=== PATIENT | male | born 1980 | race Caucasian/White ===

== ENCOUNTER 2017-08-16 13:06 | Emergency (ER) | payer SELFPAY ==
--- NOTE | 2017-08-16 14:04 | PDOC ---
History of Present Illness - General Chief Complaint: Chest Pain Stated Complaint: CHEST PAIN Time Seen by Provider: 08/16/17 13:42 History Source: Patient Exam Limitations: No Limitations - History of Present Illness Initial Comments: This is a 37 YOM with unremarkable PMH who presents with SOB, left-sided chest pain, tremors, nausea, dry heaves, chills, and mild lightheadedness which all awoke him this morning at about 8 am. He expresses concern that he smoked cocaine yesterday morning. The chest pain was left-sided pressure radiating to his left upper back which lasted about an hour and improved subsequently. He now notes right arm pain instead. He additionally feels like he cannot catch his breath. He denies any recent illness (no cough, sore throat, or runny nose) and also denies any falls or injuries lately. Past History - Past Medical History Allergies/Adverse Reactions: Allergies Allergy/AdvReac Type Severity Reaction Status Date / Time No Known Allergies Allergy Verified 08/16/17 18:13 Home Medications: Ambulatory Orders NK [No Known Home Medication] 08/16/17 Review of Systems - Review of Systems Able to Perform ROS?: Yes Constitutional: Yes: Chills. No: Fever, Unexplained wgt Loss HEENTM: No: Nose Congestion, Throat Pain Respiratory: Yes: Shortness of Breath. No: Cough Cardiac (ROS): Yes: Chest Pain, Lightheadedness. No: Edema, Syncope ABD/GI: Yes: Nausea, Other (dry heaves). No: Constipated, Diarrhea : No: Burning, Dysuria Musculoskeletal: No: Back Pain, Neck Pain Integumentary: No: Bruising, Rash Neurological: Yes: Tremors, Dizziness. No: Headache, Numbness, Tingling, Weakness Psychiatric: Yes: Other (substance use) Endocrine: No: Unexplained Weight Gain, Unexplained Weight Loss *Physical Exam - Vital Signs Last Vital Signs Temp Pulse Resp BP Pulse Ox 98.1 F 80 14 108/68 97 08/16/17 13:10 08/17/17 05:13 08/17/17 05:13 08/17/17 05:13 08/17/17 05:13 - Physical Exam General Appearance: Yes: Nourished, Appropriately Dressed, Mild Distress, Other (anxious-appearing and tremulous at rest, Upper Sorbian-speaking gentleman who answers questions appropriately, on face mask O2, appears as if he may be in withdrawal or intoxicated) HEENT: positive: EOMI, [place], Normal Voice, Hearing Grossly Normal. negative: Scleral Icterus (R), Scleral Icterus (L), Nasal Congestion Neck: positive: Trachea midline, Supple. negative: Tender, Rigid Respiratory/Chest: positive: Lungs Clear, Normal Breath Sounds. negative: Chest Tender, Respiratory Distress, Crackles, Rhonchi, Stridor, Wheezing Cardiovascular: positive: Regular Rhythm, Regular Rate. negative: Edema, Murmur , Tachycardia Gastrointestinal/Abdominal: positive: Normal Bowel Sounds, Soft, Protuberent. negative: Tender, Organomegaly, Pulsatile Mass, Guarding Musculoskeletal: positive: Normal Inspection. negative: Decreased Range of Motion, Vertebral Tenderness Extremity: positive: Normal Capillary Refill, Normal Inspection, Normal Range of Motion. negative: Tender, Cyanosis, Swelling, Erythema, Inflammation Integumentary: positive: Normal Color, Dry, Warm. 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 negative: EOM Palsy, Facial Droop, Numbness, Sensory Deficit, Confused, Disoriented Heart Score/ECG Review - History History: Moderately suspicious - Electrocardiogram EKG: Non specific repolarization disturbance - Age Age: </= 45 - Risk Factors Based on the list above the patient has:: No risk factors known - Troponin Troponin: </= normal limit - Score Heart Score - Total: 2 #1 Incomplete RBBB ED Treatment Course - LABORATORY CBC & Chemistry Diagram: 08/16/17 15:25 08/16/17 15:25 - ADDITIONAL ORDERS Additional order review: 08/16/17 15:25 RBC 4.65 MCV 96.1 H MCHC 34.2 RDW 13.0 MPV 8.3 Neutrophils % 75.5 Lymphocytes % 14.4 Monocytes % 9.2 Eosinophils % 0.0 Basophils % 0.9 - RADIOLOGY Radiology Studies Ordered: Category Date Time Status ABDOMEN CTA W/WO CONTRAST [CT] Stat CT Scan 08/16/17 20:15 Completed CHEST CTA [CT] Stat CT Scan 08/16/17 16:14 Completed - Medications Given in the ED: ED Medications Discontinued Medications Generic Name Dose Route Start Last Admin Trade Name Patricia PRN Reason Stop Dose Admin Diphenhydramine HCl 25 mg 08/16/17 18:39 08/16/17 19:02 Benadryl Injection - IVPUSH 08/16/17 18:40 25 mg ONCE ONE Administration Diphenhydramine HCl 25 mg 08/16/17 20:04 08/16/17 20:09 Benadryl Injection - IVPB 08/16/17 20:05 25 mg ONCE ONE Administration Lorazepam 2 mg 08/16/17 15:11 08/16/17 15:29 Ativan Injection - IVPUSH 08/16/17 15:12 2 mg ONCE ONE Administration Methylprednisolone Sodium Succinate 125 mg 08/16/17 18:39 08/16/17 19:02 Solu-Medrol - IVPB 08/16/17 18:40 125 mg ONCE ONE Administration Sodium Chloride 1,000 ml 08/16/17 15:37 08/16/17 16:51 Normal Saline - IV 08/16/17 15:38 1,000 ml ONCE ONE Administration Medical Decision Making - Medical Decision Making 37 YOM presents one day after smoking cocaine with left CP, SOB, tremors, dry heaves, tremors, chills. Notes no medical allergies to medications or other substances. On exam he is tremulous, anxious, currently denying chest pain DDX IBNLT ACS, AD, pneumothorax, [place], Rosa-Dawson, pneumomediastinum, PNA, pancreatitis, gastritis, etc. Also possible withdrawal component although the patient denies any chronic drug or alcohol use. Ordered is CBCD, CMP, Cardiac panel, Lipase, CXR, EKG. 08/16/17 15:16 Patient appearing very anxious and tremulous; 2 mg Ativan ordered after BP observed to be >130 systolic. 08/16/17 18:[address] about to get CTA chest abd pelv, patient now noting contrast allergy. Patient brought back to ED and ordered is 125 Solu-Medrol and 25 mg Benadryl IV for pre-treatment. Patient to get CTA studies 1 hour after pre-medication administration. Patient's care is signed out to scene shifter resident at end of my shift. *DC/Admit/Observation/Transfer Diagnosis at time of Disposition: Tremors of nervous system, Shortness of breath Chest pain Qualifiers: Chest pain type: unspecified Qualified Code(s): R07.9 - Chest pain, unspecified - Referrals Referrals: Kendell Alvarenga MD [Staff Physician] - Renetta Mai MD [Staff Physician] - - Patient Instructions Additional Instructions: avoid drug use as much as possible. Please follow up with doctor referred to you here in the ER. Print Language: WOLOF - Post Discharge Activity
[2017-08-16] MEDS ORDERED: LORazepam 2 MG/ML SDV VIAL ONE (15:12)
[2017-08-16 15:37] LABS: BASOPHIL 0.9 % (0-2.0); MCH 32.8 pg (25.7-33.7); MCHC 34.2 g/dl (32.0-35.9); MEAN CELL VOLUME 96.1 fl (80-96); MEAN PLT VOLUME 8.3 fl (7.5-11.1); NEUTROPHILS 75.5 % (42.8-82.8); PLATELET COUNT 223 K/MM3 (134-434); WHITE BLOOD COUNT 5.2 K/mm3 (4.0-10.0)
[2017-08-16] MEDS ORDERED: SODIUM CHLORIDE 0.9% 1000 ML INFUS.BAG IV ONE (15:37)
[2017-08-16 15:57] LABS: ALBUMIN 4.2 g/dl (3.4-5.0); ANION GAP 14 (8-16); BILIRUBIN,TOTAL 0.6 mg/dL (0.2-1.0); CALCIUM 9.4 mg/dL (8.5-10.1); CO2 24 mmol/L (21-32); CREATININE 0.8 mg/dL (0.7-1.3); GLUCOSE,RANDOM 109 mg/dL (74-106); SGOT/AST 65 U/L (15-37); SGPT/ALT 77 U/L (12-78); TOT PROT 8.3 g/dl (6.4-8.2)
[2017-08-16 16:00] LABS: ALK PHOS 120 U/L (45-117); CPK 156 IU/L (39-308); TROPONIN I < 0.02 ng/ml (0.00-0.05)
[2017-08-16 16:03] LABS: INR 1.14 (0.82-1.09); PROTHROMBIN TIME (PATIENT) 12.9 SEC (9.98-11.88)
--- NOTE | 2017-08-16 16:04 | PDOC ---
Attending Attestation - Resident Resident Name: Carlota Clifton - ED Attending Attestation I have performed the following: I have examined & evaluated the patient, The case was reviewed & discussed with the resident, I agree w/resident's findings & plan, Exceptions are as noted - HPI HPI: 08/16/17 15:59 37-year-old male denies significant past medical history presents with nausea, left sided chest pain, shortness of breath and was spinning dizziness when he woke up this morning. He states that the chest pain occurred for one hour, was left-sided and radiated to his left upper back. The chest pain and is left chest resolved on its own. He now reports right arm pain. Denies any fevers, chills. Denies any focal weakness or numbness. Denies headache. Reports that he drinks alcohol from time to time. Denies any other drug ingestions. - Physicial Exam PE: 08/16/17 16:01 GENERAL: Awake, alert, and fully oriented, in no acute distress HEAD: No signs of trauma EYES: PERRLA, EOMI, sclera anicteric, conjunctiva clear ENT: Auricles normal inspection, hearing grossly normal, nares patent, oropharynx clear without exudates. Moist mucosa NECK: Normal ROM, supple, no lymphadenopathy, JVD, or masses LUNGS: Breath sounds equal, clear to auscultation bilaterally. No wheezes, and no crackles HEART: Regular rate and rhythm, normal S1 and S2, no murmurs, rubs or gallops ABDOMEN: Soft, nontender, normoactive bowel sounds. No guarding, no rebound. No masses EXTREMITIES: Normal range of motion, no edema. No clubbing or cyanosis. No cords, erythema, or tenderness NEUROLOGICAL: Normal speech, cranial nerves intact, negative pronator drift, 5/ 5 strength in all 4 extremities, normal sensation to light touch in all 4 extremities, normal cerebellar exam, normal gait, normal reflexes and tone SKIN: Warm, Dry, normal turgor, no rashes or lesions noted. - Medical Decision Making 08/16/17 16:32 37-year-old male with no significant past medical history presents with left- sided chest pain radiating to the back after using crack/cocaine. Patient also complaining of shortness of breath and tremulousness. Symptoms may be secondary to crack/cocaine use however given chest pain we must rule out an aortic dissection. Will also check 2 troponins as patient is low risk other than his drug use. Patient was agitated on arrival and required benzos for tremulousness and agitation, currently is lethargic but arousable. Will reassess. 08/16/17 18:53 Labs unremarkable, including negative troponin. While in CT scan, the patient reports a possible ALLERGY to iodine. He does not recall what his reaction to iodine is, nor is he sure if he has an ALLERGY. We will pretreat the patient with IV methylpred and IV Benadryl and obtain the study in 1 hour. The patient will also have a repeat troponin at 7:30p. Patient has been signed out to Dr. Poole for further management.
[2017-08-16 18:17] LABS: URINE APPEARANCE SLCLOUDY; URINE BILIRUBIN NEGATIVE (NEGATIVE); URINE BLOOD NEGATIVE (NEGATIVE); URINE COLOR YELLOW; URINE GLUCOSE (UA) NEGATIVE (NEGATIVE); URINE KETONE TRACE (NEGATIVE); URINE NITRITE NEGATIVE (NEGATIVE); URINE UROBILINOGEN NEGATIVE mg/dL (0.2-1.0)
[2017-08-16 18:24] LABS: URINE MARIJUANA THC NEGATIVE ng/ml (CUTOFF=50)
[2017-08-16 18:27] VITALS: TEMP 98.1; BMI 29.8
[2017-08-16] MEDS ORDERED: methylPREDNISolone NA SUCC 125 MG/2 ML VIAL IVPB ONE (18:39)
[2017-08-16 18:40] LABS: URINE PROTEIN 2+ (NEGATIVE)
[2017-08-16] MEDS ORDERED: methylPREDNISolone NA SUCC 125 MG/2 ML VIAL ONE (18:51)
[2017-08-16 20:49] LABS: URINE BACTERIA RARE /hpf (NONE SEEN); URINE MUCUS RARE; URINE RBC 3 /hpf (0-3); URINE WBC <1 /hpf (3-5)
--- NOTE | 2017-08-17 02:05 | PDOC ---
*Physical Exam - Vital Signs Last Vital Signs Temp Pulse Resp BP Pulse Ox 98.1 F 82 16 150/68 97 08/16/17 13:10 08/16/17 22:00 08/16/17 22:00 08/16/17 22:00 08/16/17 22:00 ED Treatment Course - LABORATORY CBC & Chemistry Diagram: 08/16/17 15:25 08/16/17 15:25 - ADDITIONAL ORDERS Additional order review: Laboratory Results 08/16/17 08/16/17 08/16/17 20:47 20:13 18:03 PT with INR INR Sodium Potassium Chloride Carbon Dioxide Anion Gap BUN Creatinine Creat Clearance w eGFR Random Glucose Calcium Total Bilirubin AST ALT Alkaline Phosphatase Creatine Kinase Creatine Kinase Index CK-MB (CK-2) Troponin I < 0.02 Cancelled Total Protein Albumin Lipase Urine Color Urine Appearance Urine pH Ur Specific [place] Urine Protein Urine Glucose (UA) Urine Ketones Urine Blood Urine Nitrite Urine Bilirubin Urine Urobilinogen Urine WBC (Auto) Urine RBC (Auto) Urine Bacteria Urine Mucus Opiates Screen Negative Methadone Screen Negative Barbiturate Screen Negative Phencyclidine Screen Negative Ur Amphetamines Screen Negative MDMA (Ecstasy) Screen Negative Benzodiazepines Screen Negative Cocaine Screen Positive U Marijuana (THC) Screen Negative 08/16/17 08/16/17 08/16/17 18:03 15:25 15:25 PT with INR 12.90 H INR 1.14 Sodium Potassium Chloride Carbon Dioxide Anion Gap BUN Creatinine Creat Clearance w eGFR Random Glucose Calcium Total Bilirubin AST ALT Alkaline Phosphatase Creatine Kinase Creatine Kinase Index CK-MB (CK-2) Troponin I Total Protein Albumin Lipase 122 Urine Color Yellow Urine Appearance Slcloudy Urine pH 8.0 Ur Specific [place] 1.026 Urine Protein 2+ H Urine Glucose (UA) Negative Urine Ketones Trace H Urine Blood Negative Urine Nitrite Negative Urine Bilirubin Negative Urine Urobilinogen Negative Urine WBC (Auto) <1 Urine RBC (Auto) 3 Urine Bacteria Rare Urine Mucus Rare Opiates Screen Methadone Screen Barbiturate Screen Phencyclidine Screen Ur Amphetamines Screen MDMA (Ecstasy) Screen Benzodiazepines Screen Cocaine Screen U Marijuana (THC) Screen 08/16/17 15:25 PT with INR INR Sodium 142 Potassium 3.8 Chloride 104 Carbon Dioxide 24 Anion Gap 14 BUN 5 L Creatinine 0.8 Creat Clearance w eGFR > 60 Random Glucose 109 H Calcium 9.4 Total Bilirubin 0.6 AST 65 H ALT 77 Alkaline Phosphatase 120 H Creatine Kinase 156 Creatine Kinase Index 0.6 CK-MB (CK-2) < 1.000 Troponin I < 0.02 Total Protein 8.3 H Albumin 4.2 Lipase Urine Color Urine Appearance Urine pH Ur Specific [place] Urine Protein Urine Glucose (UA) Urine Ketones Urine Blood Urine Nitrite Urine Bilirubin Urine Urobilinogen Urine WBC (Auto) Urine RBC (Auto) Urine Bacteria Urine Mucus Opiates Screen Methadone Screen Barbiturate Screen Phencyclidine Screen Ur Amphetamines Screen MDMA (Ecstasy) Screen Benzodiazepines Screen Cocaine Screen U Marijuana (THC) Screen 08/16/17 15:25 RBC 4.65 MCV 96.1 H MCHC 34.2 RDW 13.0 MPV 8.3 Neutrophils % 75.5 Lymphocytes % 14.4 Monocytes % 9.2 Eosinophils % 0.0 Basophils % 0.9 - Medications Given in the ED: ED Medications Discontinued Medications Generic Name Dose Route Start Last Admin Trade Name Freq PRN Reason Stop Dose Admin Diphenhydramine HCl 25 mg 08/16/17 18:39 08/16/17 19:02 Benadryl Injection - IVPUSH 08/16/17 18:40 25 mg ONCE ONE Administration Diphenhydramine HCl 25 mg 08/16/17 20:04 08/16/17 20:09 Benadryl Injection - IVPB 08/16/17 20:05 25 mg ONCE ONE Administration Lorazepam 2 mg 08/16/17 15:11 08/16/17 15:29 Ativan Injection - IVPUSH 08/16/17 15:12 2 mg ONCE ONE Administration Methylprednisolone Sodium Succinate 125 mg 08/16/17 18:39 08/16/17 19:02 Solu-Medrol - IVPB 08/16/17 18:40 125 mg ONCE ONE Administration Sodium Chloride 1,000 ml 08/16/17 15:37 08/16/17 16:51 Normal Saline - IV 08/16/17 15:38 1,000 ml ONCE ONE Administration *DC/Admit/Observation/Transfer Diagnosis at time of Disposition: Tremors of nervous system, Shortness of breath Chest pain Qualifiers: Chest pain type: unspecified Qualified Code(s): R07.9 - Chest pain, unspecified - Discharge Dispostion Disposition: HOME Condition at time of disposition: Improved Admit: No - Referrals Referrals: Renetta Mai MD [Staff Physician] - Kendell Alvarenga MD [Staff Physician] - - Patient Instructions Printed Discharge Instructions: DI for Chest Pain Additional Instructions: avoid drug use as much ad possible. Please follow up with doctor referred to you here in the ER. Print Language: BELARUSIAN - Post Discharge Activity
[2017-08-17 05:14] VITALS: BP 108/68; PULSE 80
--- NOTE | 2017-08-17 10:06 | EKG ---
Test Reason : Blood Pressure : / mmHG Vent. Rate : 099 BPM Atrial Rate : 099 BPM P-R Int : 138 ms QRS Dur : 096 ms QT Int : 370 ms P-R-T Axes : 031 -08 018 degrees QTc Int : 474 ms NORMAL SINUS RHYTHM INCOMPLETE RIGHT BUNDLE BRANCH BLOCK NO PREVIOUS ECGS AVAILABLE Confirmed by JASON ROSALES MD ([id number]) on 08/17/2017 10:06:09 AM Referred By: Confirmed By:JASON ROSALES MD
[2017-08-17 12:19] LABS: URINE LEUK ESTERASE Negative (NEGATIVE)
== END 2017-08-17 05:14 ==
LOC: JER 13:06
CPT/HCPCS: 36415; 71275-TC; 74175-TC; 80053; 80307; 81003; 81015; 82550; 82553; 83690; 84484; 85025; 85610; 87086; 93005; 93010; 99285-25